=== PATIENT | female | born 2000 | race Caucasian/White ===

== ENCOUNTER → 2021-09-20 | Outpatient (CLI) | payer MEDICAID ==
--- NOTE | 2021-09-20 13:45 | Diagnostic Imaging Report ---
INDICATION: patient, survey TECHNIQUE: Multiple real-time grayscale images were obtained over the gravid uterus. COMPARISON: None during this FINDINGS: A single live intrauterine fetus is seen measuring at 21 weeks 1 day in size by composite measurements. Cervical length is 4.4 cm, distance from the placental tip to the internal os was 4.5 cm. Placenta is anterior with no evidence of previa. Amniotic fluid is qualitatively normal. There is heart rate 152 bpm. The fetus is in cephalic presentation. survey showed normal-appearing kidneys and bladder and stomach. Normal-appearing intracranial ventricles are seen. Four-chamber heart view was normal. spine was normal. Three-vessel cord and cord insertion appear normal. There is no adnexal mass or free fluid, adnexa were not well visualized.. Biometrical measurements are as follows: Biparietal 4.95 cm, age 21 weeks 0 days. Head circumference 18.47 cm, age 20 weeks 6 days. Abdominal circumference 15.47 cm, age 20 weeks 5 days. Femur length 3.61 cm, age 21 weeks 4 days. Sonographic estimate age: 21 weeks 1 days. Sonographic estimated date of delivery: 01/30/2022. Estimated Weight: 392 gm (+/- 57 gm). LMP percentile: 61%. heart rate: 152 beats per minute. number: 1 of 1. IMPRESSION: Single live intrauterine fetus measuring 21 weeks 1 day in size with no detectable abnormalities. Dictated by: Dictated on workstation # [id number]
== END ==
LOC: RAD 10:00
PROVIDERS: ATTEND Obstetrics & Gynecology
DX: Z34.82 Encounter for supervision of other normal pregnancy, second trimester (principal); Z3A.21 21 weeks gestation of pregnancy
CPT/HCPCS: 76805

== ENCOUNTER 2022-01-30 07:00 | Inpatient (IN) | payer MEDICAID ==
[2022-01-30] VITALS (58 sets, daily range): BP systolic 89–144; BP diastolic 52–93
[~2022-01-30] VITALS: Ht 172.7 cm; Wt 70.4 kg
[2022-01-30] MEDS ORDERED: NS (IVPB) 50 ML ONE (07:41)
[2022-01-30] MEDS ORDERED: AMPICILLIN 2,000 MG/14.8 ML (IV USE) ONE (07:41)
[2022-01-30] MEDS: D5 LR IV SOLUTION 1,000 ML IV SCH ×2 (07:54→14:36)
[2022-01-30 08:13] LABS: BASOPHILS % (AUTO) 0 % (0-10); EOSINOPHILS % (AUTO) 0 % (0-10); HEMATOCRIT 30 % (35-52); HEMOGLOBIN 9.6 g/dL (11.5-16.0); LYMPHOCYTES # (AUTO) 1.5 10^3/uL (1.0-4.0); LYMPHOCYTES % (AUTO) 20 % (12-44); MEAN CORPUSCULAR HEMOGLOBIN 27 pg (25-34); MEAN CORPUSCULAR HGB CONC 32 g/dL (32-36); MEAN CORPUSCULAR VOLUME 84 fL (80-99); MEAN PLATELET VOLUME 12.7 fL (9.0-12.2); MONOCYTES # (AUTO) 0.6 10^3/uL (0.0-1.0); MONOCYTES % (AUTO) 8 % (0-12); NEUTROPHILS # (AUTO) 5.2 10^3/uL (1.8-7.8); NEUTROPHILS % (AUTO) 71 % (42-75); PLATELET COUNT 175 10^3/uL (130-400); WHITE BLOOD COUNT 7.4 10^3/uL (4.3-11.0)
[2022-01-30] MEDS ORDERED: D5 LR IV SOLUTION 1,000 ML IV SCH (09:00)
[2022-01-30] MEDS ORDERED: AMPICILLIN FOR IV USE 2,000 MG in WATER (STERILE) FOR INJECTION 14.8 ML IV ONE (09:00)
[2022-01-30] MEDS ORDERED: OXYTOCIN PRE-MIX DRIP 500 ML IV SCH ×2 (09:00→21:45)
--- NOTE | 2022-01-30 09:30 | History & Physical ---
History and Physical Date Seen by Provider: January 30, 2022 Time Seen by Provider: 07:30 This patient is a 21-year-old 1 female who presents for induction of labor at 39+ weeks gestation. Her has been uncomplicated. She did have a positive GBS culture. Patient denies discharge or bleeding denies rupture membranes and has occasional contractions Allergies are none Medications are vitamins Medical social and surgical history is are per the antepartum record HEENT exam is normal Neck is supple no lymphadenopathy no thyromegaly Abdomen is gravid soft nontender nondistended Extremities show no clubbing cyanosis. There is no Homans' sign. Pelvic exam shows a cervix 1 to 2 cm dilated 60% effaced -1 station vertex presentation Amniotomy was performed with release of clear fluid Laboratory Tests Test 01/30/22 07:37 Range/Units White Blood Count 7.4 4.3-11.0 10^3/uL Red Blood Count 3.53 L 3.80-5.11 10^6/uL Hemoglobin 9.6 L 11.5-16.0 g/dL Hematocrit 30 L 35-52 % Mean Corpuscular Volume 84 80-99 fL Mean Corpuscular Hemoglobin 27 25-34 pg Mean Corpuscular Hemoglobin Concent 32 32-36 g/dL Red Cell Distribution Width 12.7 10.0-14.5 % Platelet Count 175 130-400 10^3/uL Mean Platelet Volume 12.7 H 9.0-12.2 fL Immature Granulocyte % (Auto) 1 % Neutrophils (%) (Auto) 71 42-75 % Lymphocytes (%) (Auto) 20 12-44 % Monocytes (%) (Auto) 8 0-12 % Eosinophils (%) (Auto) 0 0-10 % Basophils (%) (Auto) 0 0-10 % Neutrophils # (Auto) 5.2 1.8-7.8 10^3/uL Lymphocytes # (Auto) 1.5 1.0-4.0 10^3/uL Monocytes # (Auto) 0.6 0.0-1.0 10^3/uL Eosinophils # (Auto) 0.0 0.0-0.3 10^3/uL Basophils # (Auto) 0.0 0.0-0.1 10^3/uL Immature Granulocyte # (Auto) 0.1 0.0-0.1 10^3/uL Assessment and plan Term at 39+ weeks gestation admitted for induction of labor. Patient will labor under the protection of ampicillin for GBS prophylaxis. We antici kern a vaginal delivery 39-week patient admitted for labor induction electively Allergies and Home Medications Allergies Coded Allergies: No Known Drug Allergies (Unverified , 01/30/22) Patient Home Medication List Home Medication List Reviewed: Yes PAULA TORRES MD January 30, 2022 9:30 am
[2022-01-30] MEDS: AMPICILLIN FOR IV USE 1,000 MG in WATER (STERILE) FOR INJECTION 7.4 ML IV SCH ×3 (11:49→19:57)
[2022-01-30] MEDS ORDERED: BUTORPHANOL INJ 2 MG/ML (STADOL) VIAL ONE ×3 (12:30→19:30)
[2022-01-30] MEDS ORDERED: BUTORPHANOL INJ 2 MG/ML (STADOL) VIAL IV ONE ×4 (12:30→19:30)
[2022-01-30] MEDS ORDERED: CATHETER FLUSH 10 ML SYR IV SCH (14:00)
[2022-01-30] MEDS ORDERED: fentaNYL 2 mcg/ml BUPIVA 0.125 100 ML ONE (15:34)
[2022-01-30] MEDS ORDERED: BUPIVACAINE 0.25% 10 ML (SENSORCAINE) VIAL ONE (15:59)
[2022-01-30] MEDS ORDERED: fentaNYL INJ 100 MCG/2 ML AMP ONE (16:00)
[2022-01-30] MEDS ORDERED: LACTATED RINGERS 1,000 ML IV SCH (16:30)
[2022-01-30] MEDS ORDERED: NALOXONE 0.4 MG/ML 1 ML (NARCAN) VIAL IV PRN (16:30)
[2022-01-30] MEDS ORDERED: EPIDURAL (fentaNYL 2 MCG/ML BUPIVA 0.125%)100 ML BAG EPI PRN (16:30)
[2022-01-30] MEDS ORDERED: diphenhydrAMINE 50 MG/ML INJ (BENADRYL) IV PRN (16:30)
[2022-01-30] MEDS ORDERED: ONDANSETRON 4 MG/2 ML (SDV) Z0FRAN IV PRN (16:30)
[2022-01-30] MEDS ORDERED: LIDOCAINE/EPI 2% 1:200,00 (XYLOCAINE) 10 ML VIAL ONE (19:21)
[2022-01-30] MEDS ORDERED: NALOXONE 0.4 MG/ML 1 ML (NARCAN) VIAL ONE (19:42)
[2022-01-30] MEDS ORDERED: oxyCODONE/APAP 5/325MG (PERCOCET 5) TABLET PO PRN (21:45)
[2022-01-30] MEDS ORDERED: ONDANSETRON 4 MG/2 ML (SDV) Z0FRAN IVP PRN (21:45)
[2022-01-30] MEDS ORDERED: BENZOCAINE/MENTHOL (DERMOPLAST) 56 ML CAN TP PRN (21:45)
[2022-01-30] MEDS ORDERED: TETANUS,DIPTH,PERTUSS P/F (BOOSTRIX) 0.5 ML VIAL IM ONE (21:45)
[2022-01-30] MEDS: KETOROLAC 30 MG/ML VIAL IVP SCH (22:37)
[2022-01-31] MEDS ORDERED: LIDOCAINE/EPI 2% 1:200,00 (XYLOCAINE) 20 ML VIAL INJ PRN (02:15)
[2022-01-31 02:45] VITALS: BP 91/58
[2022-01-31] MEDS: KETOROLAC 30 MG/ML VIAL IVP SCH (04:37)
[2022-01-31 07:00] VITALS: BP 92/58
--- NOTE | 2022-01-31 08:22 | Progress Note ---
Standard Progress Note Progress Notes/Assess & Plan Date Seen by a Provider: January 31, 2022 Time Seen by a Provider: 08:21 Progress/Assessment & Plan This patient is without complaint. She is ambulating, voiding, tolerating oral intake well and has good pain control. Vital Signs Date Time Temp Pulse Resp B/P (MAP) Pulse Ox O2 Delivery O2 Flow Rate FiO2 01/31/22 07:00 36.7 98 18 92/58 (69) 98 01/31/22 02:45 35.9 110 18 91/58 (69) 100 Room Air 01/30/22 22:49 109 18 119/56 (77) 01/30/22 21:45 94 18 103/72 (82) 01/30/22 21:30 110 18 102/65 (77) 01/30/22 21:15 84 18 101/59 (73) 01/30/22 21:00 102 18 99/58 (72) 01/30/22 20:45 118 18 94/52 (66) 01/30/22 20:34 112 18 89/54 (66) 01/30/22 20:30 37.0 01/30/22 20:17 18 Room Air 01/30/22 20:15 97 18 125/72 (89) Room Air 01/30/22 20:00 104 18 144/81 (102) Room Air 01/30/22 19:45 36.2 18 Room Air 01/30/22 19:30 79 18 118/69 (85) Room Air 01/30/22 19:15 83 18 123/58 (79) Room Air 01/30/22 18:38 98 18 128/74 (92) Room Air 01/30/22 18:30 75 18 120/74 (89) 100 Room Air 01/30/22 18:20 80 18 111/69 (83) 100 Room Air 01/30/22 18:10 82 18 110/66 (81) 100 Room Air 01/30/22 18:00 82 18 103/56 (72) 100 Room Air 01/30/22 17:53 80 18 114/68 (83) 100 Room Air 01/30/22 17:39 78 18 111/61 (78) 100 Room Air 01/30/22 17:30 80 18 106/61 (76) 100 Room Air 01/30/22 17:15 73 18 108/64 (79) 100 Room Air 01/30/22 17:00 82 18 107/58 (74) 100 Room Air 01/30/22 16:45 83 18 110/58 (75) 99 Room Air 01/30/22 16:40 86 18 107/54 (71) 99 Room Air 01/30/22 16:35 91 18 109/57 (74) 99 Room Air 01/30/22 16:30 87 18 106/58 (74) 100 Room Air 01/30/22 16:20 80 18 100 Room Air 01/30/22 16:20 37.0 84 18 114/67 (83) 100 Room Air 01/30/22 16:15 88 18 113/72 (86) 100 Room Air 01/30/22 16:10 82 18 110/66 (81) 97 Room Air 01/30/22 16:00 82 18 111/63 (79) Room Air 01/30/22 15:45 76 18 118/61 (80) Room Air 01/30/22 15:30 81 18 108/61 (77) Room Air 01/30/22 15:15 77 18 110/74 (86) Room Air 01/30/22 15:00 94 18 121/93 (102) Room Air 01/30/22 14:45 76 18 119/71 (87) Room Air 01/30/22 14:30 78 18 119/71 (87) Room Air 01/30/22 14:15 71 18 118/73 (88) Room Air 01/30/22 14:00 84 18 110/70 (83) Room Air 01/30/22 13:45 83 18 115/74 (88) Room Air 01/30/22 13:30 80 18 109/73 (85) Room Air 01/30/22 13:15 75 18 105/62 (76) Room Air 01/30/22 13:00 76 18 113/59 (77) Room Air 01/30/22 12:45 78 18 114/64 (81) Room Air 01/30/22 12:30 36.7 81 18 111/68 (82) Room Air 01/30/22 12:15 75 18 109/68 (82) Room Air 01/30/22 12:00 86 18 108/68 (81) Room Air 01/30/22 11:45 82 18 111/67 (82) Room Air 01/30/22 11:30 88 18 111/66 (81) Room Air 01/30/22 11:15 81 18 107/70 (82) Room Air 01/30/22 11:00 36.6 73 18 113/76 (88) Room Air 01/30/22 10:45 81 18 110/65 (80) Room Air 01/30/22 10:30 77 18 117/66 (83) Room Air 01/30/22 10:15 83 18 113/64 (80) Room Air 01/30/22 10:00 86 18 114/56 (75) Room Air 01/30/22 09:45 18 Room Air 01/30/22 09:30 90 18 111/62 (78) Room Air 01/30/22 09:15 85 18 108/60 (76) Room Air 01/30/22 09:00 18 Room Air 01/30/22 08:30 83 18 106/57 (73) Room Air I & O 01/31/22 07:00 Intake Total 1079.6 ml Balance 1079.6 ml Vital signs are stable. Patient is afebrile. Fundus is firm below the umbilicus and nontender. Extremities show no clubbing or cyanosis. There is no Homans' sign. Assessment and plan day 1 status post Spontaneous vaginal delivery doing well. Plan is for routine convalescent care PAULA TORRES MD January 31, 2022 8:22 am
[2022-01-31] MEDS ORDERED: OXYC1TAB87 PO (08:30)
[2022-01-31] MEDS ORDERED: DOCU100C37 PO (08:30)
[2022-01-31] MEDS ORDERED: IBUP-1780 PO (08:30)
--- NOTE | 2022-01-31 08:31 | Discharge Inst-Surgical ---
Discharge Inst-Surgical Depart Medication/Instructions New, Converted or Re-Newed RX: Transmitted to Pharmacy Consults/Follow Up Patient Instructions: As directed Orders & Referrals Follow Up Appt: Call to make follow up appt. for patient in 4 weeks. Activity Per routine post vaginal delivery instructions. RX to patient pharmacy from my office Diet as tolerated Patient may shower or tub bathe as desired. Activity Activity as Tolerated: No Diet Discharge Diet: No Restrictions PAULA TORRES MD January 31, 2022 8:31 am
--- NOTE | 2022-01-31 08:36 | OB Labor & Delivery Record ---
Labor & Delivery This patient delivered by term spontaneous vaginal delivery of viable female infant with Apgars of 8 and 9 at 1 and 5 minutes respectively weight of 7 pounds and 15 ounces time of 2017 and a cord blood pH was 7.17. With a heart rate moderately depressed and patient pushing ineffective to expel the baby and P's abdomen was performed to shorten the second stage of labor secondary to the decreased heart rate. Delivery ensued fairly promptly. The was bulb suctioned on delivery of the head again on completion of delivery. The umbilical cord when pulseless were doubly clamped the father cut the cord the baby was passed to mom's abdomen. The placenta delivered promptly spontaneously Debra it was normal with a three- vessel cord. The cervix vagina rectum perineum were examined and found intact except for a midline episiotomy had a 2 cm extension of the defect of the posterior vaginal wall. The episiotomy and extension were repaired with 2 sutures of 3-0 Vicryl repeat in the usual manner Sponge and needle counts were correct on completion of the delivery and repair. EBL was around 400 cc Patient remained in the LDR for recovery and baby remained with mom. PAULA TORRES MD January 31, 2022 8:35 am
[2022-01-31] MEDS ORDERED: IBUPROFEN 800 MG (MOTRIN) TAB PO ONE (10:42)
[2022-01-31] MEDS: IBUPROFEN 800 MG (MOTRIN) TAB PO SCH ×3 (11:08→22:20)
[2022-01-31] MEDS: DOCUSATE SODIUM 100 MG (COLACE) CAP PO SCH ×2 (11:09→21:19)
[2022-01-31 11:15] VITALS: BP 102/58
--- NOTE | 2022-01-31 13:04 | Anesthesia-Regional Post-Op ---
Regional Patient Condition Mental Status: Alert, Oriented x3 Circulation: Same as Pre-Op Headache: Absent Sensation: Full Recovery Motor Block: Absent Post Op Complications Complications None Follow Up Care/Instructions Patient Instructions None needed. Anesthesia/Patient Condition Patient is doing well but she does mention a small area of numbness on her right thigh. She states she is able to ambulate without and difficulty and does not notice any weakness. I told her this should resolve on its own with time. She will call with any questions or concerns. She has stable vital signs, no apparent adverse anesthesia problems. ERICA VERAS DO January 31, 2022 13:04
[2022-01-31 16:55] VITALS: BP 100/51
[2022-01-31 22:20] VITALS: BP 100/57
[2022-02-01 04:36] VITALS: BP 92/55
[2022-02-01] MEDS: IBUPROFEN 800 MG (MOTRIN) TAB PO SCH (04:36)
[2022-02-01] MEDS ORDERED: WITCH HAZEL(TUCKS) 40 EA JAR TOP PRN (04:45)
--- NOTE | 2022-02-01 07:47 | Progress Note ---
Standard Progress Note Progress Notes/Assess & Plan Date Seen by a Provider: February 01, 2022 Time Seen by a Provider: 07:46 Progress/Assessment & Plan This patient is without complaint. She is ambulating, voiding, tolerating oral intake well and has good pain control. Vital Signs Date Time Temp Pulse Resp B/P (MAP) Pulse Ox O2 Delivery O2 Flow Rate FiO2 01/31/22 07:00 36.7 98 18 92/58 (69) 98 01/31/22 02:45 35.9 110 18 91/58 (69) 100 Room Air 01/30/22 22:49 109 18 119/56 (77) 01/30/22 21:45 94 18 103/72 (82) 01/30/22 21:30 110 18 102/65 (77) 01/30/22 21:15 84 18 101/59 (73) 01/30/22 21:00 102 18 99/58 (72) 01/30/22 20:45 118 18 94/52 (66) 01/30/22 20:34 112 18 89/54 (66) 01/30/22 20:30 37.0 01/30/22 20:17 18 Room Air 01/30/22 20:15 97 18 125/72 (89) Room Air 01/30/22 20:00 104 18 144/81 (102) Room Air 01/30/22 19:45 36.2 18 Room Air 01/30/22 19:30 79 18 118/69 (85) Room Air 01/30/22 19:15 83 18 123/58 (79) Room Air 01/30/22 18:38 98 18 128/74 (92) Room Air 01/30/22 18:30 75 18 120/74 (89) 100 Room Air 01/30/22 18:20 80 18 111/69 (83) 100 Room Air 01/30/22 18:10 82 18 110/66 (81) 100 Room Air 01/30/22 18:00 82 18 103/56 (72) 100 Room Air 01/30/22 17:53 80 18 114/68 (83) 100 Room Air 01/30/22 17:39 78 18 111/61 (78) 100 Room Air 01/30/22 17:30 80 18 106/61 (76) 100 Room Air 01/30/22 17:15 73 18 108/64 (79) 100 Room Air 01/30/22 17:00 82 18 107/58 (74) 100 Room Air 01/30/22 16:45 83 18 110/58 (75) 99 Room Air 01/30/22 16:40 86 18 107/54 (71) 99 Room Air 01/30/22 16:35 91 18 109/57 (74) 99 Room Air 01/30/22 16:30 87 18 106/58 (74) 100 Room Air 01/30/22 16:20 80 18 100 Room Air 01/30/22 16:20 37.0 84 18 114/67 (83) 100 Room Air 01/30/22 16:15 88 18 113/72 (86) 100 Room Air 01/30/22 16:10 82 18 110/66 (81) 97 Room Air 01/30/22 16:00 82 18 111/63 (79) Room Air 01/30/22 15:45 76 18 118/61 (80) Room Air 01/30/22 15:30 81 18 108/61 (77) Room Air 01/30/22 15:15 77 18 110/74 (86) Room Air 01/30/22 15:00 94 18 121/93 (102) Room Air 01/30/22 14:45 76 18 119/71 (87) Room Air 01/30/22 14:30 78 18 119/71 (87) Room Air 01/30/22 14:15 71 18 118/73 (88) Room Air 01/30/22 14:00 84 18 110/70 (83) Room Air 01/30/22 13:45 83 18 115/74 (88) Room Air 01/30/22 13:30 80 18 109/73 (85) Room Air 01/30/22 13:15 75 18 105/62 (76) Room Air 01/30/22 13:00 76 18 113/59 (77) Room Air 01/30/22 12:45 78 18 114/64 (81) Room Air 01/30/22 12:30 36.7 81 18 111/68 (82) Room Air 01/30/22 12:15 75 18 109/68 (82) Room Air 01/30/22 12:00 86 18 108/68 (81) Room Air 01/30/22 11:45 82 18 111/67 (82) Room Air 01/30/22 11:30 88 18 111/66 (81) Room Air 01/30/22 11:15 81 18 107/70 (82) Room Air 01/30/22 11:00 36.6 73 18 113/76 (88) Room Air 01/30/22 10:45 81 18 110/65 (80) Room Air 01/30/22 10:30 77 18 117/66 (83) Room Air 01/30/22 10:15 83 18 113/64 (80) Room Air 01/30/22 10:00 86 18 114/56 (75) Room Air 01/30/22 09:45 18 Room Air 01/30/22 09:30 90 18 111/62 (78) Room Air 01/30/22 09:15 85 18 108/60 (76) Room Air 01/30/22 09:00 18 Room Air 01/30/22 08:30 83 18 106/57 (73) Room Air I & O 01/31/22 07:00 Intake Total 1079.6 ml Balance 1079.6 ml Vital signs are stable. Patient is afebrile. Fundus is firm below the umbilicus and nontender. Extremities show no clubbing or cyanosis. There is no Homans' sign. Assessment and plan day 1 status post Spontaneous vaginal delivery doing well. Plan is for routine convalescent care 02/01/2018 Patient with complaint. She is ambulating, voiding, intake and has good pain control. Patient is requesting discharge home. Vital Signs Date Time Temp Pulse Resp B/P (MAP) Pulse Ox O2 Delivery O2 Flow Rate FiO2 02/01/22 04:36 36.3 85 18 92/55 (67) 98 Room Air 01/31/22 22:20 36.3 80 18 100/57 (71) 98 Room Air 01/31/22 16:55 36.0 85 18 100/51 (67) Room Air 01/31/22 11:15 36.7 83 18 102/58 (73) 98 Room Air Vital signs are stable. Patient febrile. Fundus is firm below the umbilicus and nontender Extremities show no clubbing or cyanosis. There is no Homans' sign. Assessment and plan day #2 status post term spontaneous vaginal delivery doing well. Plan is for discharge home and follow-up in clinic Final Diagnosis 39-week spontaneous vaginal delivery MELISSA,PAULA G MD February 01, 2022 07:47
[2022-02-01 08:04] VITALS: BP 92/55
[2022-02-01] MEDS: DOCUSATE SODIUM 100 MG (COLACE) CAP PO SCH (08:04)
[2022-02-01 10:17] VITALS: BP 92/55
[2022-02-04] MEDS ORDERED: IBUPROFEN 800 MG (MOTRIN) TAB PO SCH
== END 2022-02-01 11:10 | disposition home or self-care (01) | DRG 807 ==
LOC: LDRP 07:01
PROVIDERS: ADMIT Obstetrics & Gynecology; ATTEND Obstetrics & Gynecology
PROC: 10E0XZZ Delivery of Products of Conception, External Approach (ICD-10-PCS; principal; 2022-01-31)
PROC: 0W8NXZZ Division of Female Perineum, External Approach (ICD-10-PCS; 2022-01-31)
DX: O80 Encounter for full-term uncomplicated delivery (principal); Z37.0 Single live birth; Z3A.39 39 weeks gestation of pregnancy
CPT/HCPCS: 36415; 85025; 86780; 86850; 86900; 86901